=== PATIENT | male | born 1985 | race Caucasian/White ===

== ENCOUNTER 2017-10-06 14:56 | Emergency (ER) | payer OTHER ==
[2017-10-06 15:03] VITALS: TEMP 97.3
[2017-10-06] MEDS ORDERED: DIAZEPAM 5 MG TAB PO ONE (15:33)
[2017-10-06] MEDS ORDERED: KETOROLAC 30 MG/1 ML SDV IM ONE (15:33)
--- NOTE | 2017-10-06 15:36 | EDPHY ---
H & P Stated Complaint: l sided neck pain 1 month/last chiropractic adjustment 3 wks ago/flare up y HPI/ROS: Chief complaint: Left-sided neck pain History of present illness: This is a 31-year-old male who presents to the emergency department for left-sided neck pain. He reports he has had symptoms intermittently for the last few months, at least back until March. However they have always been mild and intermittent. However over the last few weeks symptoms have dramatically worsened and in the last few days it is difficult to move his neck. He denies precipitating factors. He denies alleviating factors. He denies other associated signs or symptoms including no history of trauma, no fevers, no headache, no midline spine pain, no paresthesias especially into the left arm, no weakness or paralysis, no bowel or bladder dysfunction. Review of systems: 10 point review of systems was obtained and other than described above was negative - Personal History Current Tetanus/Diphtheria Vaccine: No - Medical/Surgical History Hx Asthma: No Hx Chronic Respiratory Disease: No Hx Diabetes: No Hx Cardiac Disease: No Hx Renal Disease: No Hx Cirrhosis: No Hx Alcoholism: No Hx HIV/AIDS: No Hx Splenectomy or Spleen Trauma: No Other PMH: r acl - Social History Smoking Status: Never smoked - Physical Exam Exam: General Appearance: Alert and no distress. Eyes: Pupils equal and round no injection. Respiratory: Chest is non tender, lungs are clear to auscultation. Cardiac: regular rate and rhythm Musculoskeletal: Head is nontender. The spine itself is nontender without crepitus, bony deformity step-off. There is tenderness of the left trapezius muscle, point of maximal intensity noted over the superior aspect of it. He has decreased range of motion with lateral movement of the neck. Chest wall is intact palpation. Patient moving all extremities with full range of motion and strength including the left upper extremity. Skin: No rashes or lesions. Neurological: Alert and oriented x4. Cranial nerves 2-12 grossly intact. Strength and sensation intact and symmetrical. Triceps, biceps and brachial radialis reflexes are 2+ bilaterally. Constitutional: Initial Vital Signs Temperature (C) 36.3 C 10/06/17 15:01 Heart Rate 65 10/06/17 15:01 Respiratory Rate 18 10/06/17 15:01 Blood Pressure 148/90 H 10/06/17 15:01 O2 Sat (%) 99 11/05/17 15:01 O2 Delivery Mode Room Air Allergies/Adverse Reactions: No Known Allergies Allergy (Unverified 10/06/17 15:00) Home Medications: Medication Instructions Recorded Diazepam [Valium 5 MG (*)] 5 mg PO TID PRN #15 tab 10/06/17 Vicodin 5-300 mg Tablet 10/06/17 Medical Decision Making ED Course/Re-evaluation: I discussed this patient with my secondary supervising physician Dr. Jasper Cohn. Patient presents to the emergency department for left-sided neck pain. It does appear to be musculoskeletal in nature. No red flag risk factors such as trauma, fever, midline spinal pain. Further he has a nonfocal neurologic exam. I will treat with anti-inflammatories and muscle relaxants. He is asked to follow up with a primary care doctor for recheck. Return precautions are given. Patient voiced understanding and agreement with plan. Differential Diagnosis: Included but not limited to contusion, sprain or strain, muscle spasms, torticollis, herniated intervertebral disc, unlikely spinal canal or cord lesion - Data Points Medications Given: Discontinued Medications Diazepam (Valium) 5 mg PO EDNOW ONE Stop: 10/06/17 15:34 Last Admin: 10/06/17 15:40 Dose: 5 mg Ketorolac Tromethamine (Toradol) 60 mg IM EDNOW ONE Stop: 10/06/17 15:34 Last Admin: 10/06/17 15:41 Dose: 60 mg Departure - Departure Disposition: Home, Routine, Self-Care Clinical Impression: Muscle spasms of neck Condition: Good Instructions: Muscle Spasm (ED) Additional Instructions: Follow-up with a primary care doctor for continued evaluation and care Use ibuprofen 800 mg 3 times a day for the next 2-3 days for pain control You can use the Valium every 8 hours as needed for muscle relaxation. It is sedating. If symptoms worsen or new symptoms develop return to the emergency room for recheck. Referrals: NONE *PRIMARY CARE P,. [Primary Care Provider] - As per Instructions Panda Colby MD [Medical Doctor] - As per Instructions Prescriptions: Diazepam [Valium 5 MG (*)] 5 mg PO TID PRN #15 tab PRN Reason: Spasms
[2017-10-06 15:56] VITALS: BP 124/92; PULSE 72; RESP 16; O2SAT 97
== END 2017-10-06 15:56 | disposition home or self-care (01) ==
DX: M62.838 Other muscle spasm (principal)
CPT/HCPCS: J1885